=== PATIENT | female | born 1965 | race African-American/Black ===

== ENCOUNTER 2020-03-24 15:23 | Emergency (ER) | payer MEDICARE, OTHER ==
[~2020-03-24] VITALS: Ht 165.1 cm; Wt 126.4 kg
[~2020-03-24 15:23] MED LIST: BP MEDS; LORA10TA7 PO; VERA240T14 PO
[2020-03-24 18:11] VITALS: BP 148/90
== END 2020-03-24 18:42 | disposition home or self-care (01) ==
LOC: EMS 15:23
DX: R10.9 Unspecified abdominal pain (principal); I10 Essential (primary) hypertension; G43.909 Migraine, unspecified, not intractable, without status migrainosus; Z90.710 Acquired absence of both cervix and uterus
CPT/HCPCS: Z7502